=== PATIENT | female | born 1980 | race Caucasian/White ===

== ENCOUNTER 2016-10-03 10:33 | Emergency (ER) | payer BC, OTHER | END 2016-10-03 11:12 | disposition home or self-care (01) | LOC: CED 10:33 | DX: H65.92 Unspecified nonsuppurative otitis media, left ear (principal); J30.2 Other seasonal allergic rhinitis; F17.210 Nicotine dependence, cigarettes, uncomplicated | CPT/HCPCS: 99283 ==